=== PATIENT | female | born 1950 | race Caucasian/White ===

== ENCOUNTER 2017-01-01 18:07 | Emergency (ER) | payer OTHER, MEDICAID ==
[~2017-01-01] VITALS: Ht 167.6 cm; Wt 113.4 kg
--- NOTE | 2017-01-01 18:07 | NUR ---
Patient BIBA BLS, transferred to bed 1. RN evaluating patient at bedside.
[2017-01-01 18:30] VITALS: BP 132/80
--- NOTE | 2017-01-01 18:44 | NUR ---
PT BIBA FOR OLD G-TUBE SITE MALFUNCTION/BLEEDING. HX PARAPLEGIA, HTN,COLOSTOMY.DENIES N/V/D; SKIN IS PINK/WARM/DRY; AAOX4 ; LUNGS CLEAR BL; HR EVEN AND REGULAR; PT DENIES ANY FEVER, CP, SOB, OR COUGH AT THIS TIME; PATIENT STATES PAIN OF 0/10 AT THIS TIME; VSS; PATIENT POSITIONED FOR COMFORT; HOB ELEVATED; BEDRAILS UP X2; BED DOWN. ER MD MADE AWARE OF PT STATUS.
--- NOTE | 2017-01-01 19:48 | NUR ---
Patient being evaluated by physician dr mg at bedside.
[2017-01-01 20:40] VITALS: BP 138/78
--- NOTE | 2017-01-01 20:40 | NUR ---
Patient discharged with v/s stable. Written and verbal after care instructions given and explained. Patient alert, oriented and verbalized understanding of instructions. Ambulatory with to alf BY KRISHNA CASTLE. All questions addressed prior to discharge. ID band removed. Patient advised to follow up with PMD. Rx of KEFLEX 500MG AND BACTRIM DS given. Patient educated on indication of medication including possible reaction and side effects. Opportunity to ask questions provided and answered.
== END 2017-01-01 20:40 ==
LOC: MED 18:27
DX: K94.22 Gastrostomy infection (principal); F17.200 Nicotine dependence, unspecified, uncomplicated; J44.9 Chronic obstructive pulmonary disease, unspecified; Z91.018 Allergy to other foods